=== PATIENT | male | born 1965 | race Caucasian/White ===

== ENCOUNTER → 2022-09-10 | Outpatient (REF) | payer OTHER ==
[2022-09-10 18:50] LABS: CREATININE, URINE 65.5 MG/DL
[2022-09-10 18:51] LABS: MALB URINE SIEMENS < 3.0 MG/DL; MAU/CREAT RATIO 4.5 MCG/MG (0.0-30.0)
[2022-09-10 20:04] LABS: BACTERIA, URINE SMALL AMOUNT; RBC, URINE 0-1 /hpf (0-3); SQUAMOUS EPITHELIAL CELL URINE SMALL AMOUNT /hpf (SMALL AMT)
== END ==
LOC: M LAB REF 16:52
PROVIDERS: ATTEND Nurse Practitioner Family
DX: E11.22 Type 2 diabetes mellitus with diabetic chronic kidney disease (principal); R31.29 Other microscopic hematuria